=== PATIENT | male | born 1955 | race African-American/Black ===

== ENCOUNTER 2019-01-27 14:02 | Emergency (ER) | payer OTHER ==
[~2019-01-27] VITALS: Ht 172.7 cm; Wt 72.7 kg
[~2019-01-27 14:02] MED LIST: HYDR25TA PO; LISI-662 PO
[2019-01-27] MEDS ORDERED: DOXE25 PO (14:16)
[2019-01-27] MEDS ORDERED: OXYM-40 NASAL (14:16)
[2019-01-27] MEDS ORDERED: DOXY25SU3 PO (14:16)
[2019-01-27] MEDS ORDERED: HYDR-3110 PO (14:16)
[2019-01-27] MEDS ORDERED: AMLO-511 PO (14:16)
[2019-01-27] MEDS ORDERED: XALA2.5OS OU (14:16)
[2019-01-27] MEDS ORDERED: SIMV-259 PO (14:16)
[2019-01-27] MEDS ORDERED: LORATADINE 10 MG TABLET PO ONE (15:15)
[2019-01-27 15:37] VITALS: BP 138/88
== END 2019-01-27 15:44 | disposition home or self-care (01) ==
LOC: EMS 14:04
DX: J31.0 Chronic rhinitis (principal); I10 Essential (primary) hypertension; H40.9 Unspecified glaucoma; F17.210 Nicotine dependence, cigarettes, uncomplicated; Z79.899 Other long term (current) drug therapy
CPT/HCPCS: 99406

== ENCOUNTER 2020-01-25 11:10 | Emergency (ER) | payer SELFPAY ==
[~2020-01-25] VITALS: Ht 177.8 cm; Wt 72.7 kg
[~2020-01-25 11:10] MED LIST changes: +AMLO5TAB9 PO; +DOXE25 PO; +DOXY25SU3 PO; +HYDR-3831 PO; -HYDR25TA PO; -LISI-662 PO; +OXYM-40 NASAL; +SIMV-259 PO; +XALA2.5OS OU
[2020-01-25 11:43] VITALS: BP 147/87
[2020-01-25] MEDS ORDERED: DOXYCYCLINE HYCLATE 100 MG CAPSULE PO ONE (12:00)
[2020-01-25] MEDS ORDERED: ACETAMINOPHEN 500 MG TABLET PO ONE (12:00)
== END 2020-01-25 13:06 | disposition home or self-care (01) ==
LOC: EMS 11:12
DX: L03.011 Cellulitis of right finger (principal); F17.210 Nicotine dependence, cigarettes, uncomplicated; I10 Essential (primary) hypertension
CPT/HCPCS: 10061; 99406